=== PATIENT | male | born 1980 | race Two or more races ===

== ENCOUNTER 2019-08-10 09:19 | Outpatient (CLI) | payer OTHER | END 2019-08-10 15:00 | disposition home or self-care (01) | LOC: EDBD 09:19 → LAB SALUS 09:19 | DX: Z11.4 Encounter for screening for human immunodeficiency virus [HIV] (principal); Z72.51 High risk heterosexual behavior; Z11.3 Encounter for screening for infections with a predominantly sexual mode of transmission ==

== ENCOUNTER 2019-08-10 09:37 | Outpatient (CLI) | payer OTHER | END 2019-08-10 09:48 | disposition home or self-care (01) | LOC: LAB 09:37 → EDBD 09:37 → LAB 09:48 | DX: R53.1 Weakness (principal); Z13.6 Encounter for screening for cardiovascular disorders; Z00.00 Encounter for general adult medical examination without abnormal findings ==